=== PATIENT | male | born 1970 | race Caucasian/White ===

== ENCOUNTER 2018-07-04 07:40 | Emergency (ER) | payer OTHER ==
[~2018-07-04] VITALS: Ht 185.4 cm; Wt 108.9 kg
[2018-07-04 07:40] VITALS: BP 152/106
[~2018-07-04 07:40] MED LIST: CEPHALEXIN 500500 M3 PO; HYDROCODONE-AP1 EAC6 PO; IBUPROFEN 800800 M1 PO; KEFLEX500 M1 PO; NOHOMEMEDICATIONS; NORCO 5-325 TA1 EAC1 PO; PENICILLIN VK250 MG PO; SUBOXONE 8 MG-1 EAC3 SL
[2018-07-04] MEDS ORDERED: METHADOSE40 MG PO (07:44)
[2018-07-04] MEDS ORDERED: NAPROSYN500 MG PO (09:02)
[2018-07-04] MEDS ORDERED: TRAMADOL 50 MG50 MG PO (09:02)
== END 2018-07-04 09:11 | disposition home or self-care (01) ==
LOC: ER 07:40
DX: M23.91 Unspecified internal derangement of right knee (principal); M54.9 Dorsalgia, unspecified; M25.511 Pain in right shoulder; G89.4 Chronic pain syndrome; F17.210 Nicotine dependence, cigarettes, uncomplicated; Z90.49 Acquired absence of other specified parts of digestive tract